=== PATIENT | female | born 1975 | race Two or more races ===

== ENCOUNTER 2023-05-11 19:03 | Emergency (ER) | payer OTHER ==
[~2023-05-11] VITALS: Ht 162.6 cm; Wt 72.7 kg
[2023-05-11 19:47] VITALS: BP 145/99; PULSE 119; RESP 19; TEMP 98.7
[2023-05-11 21:06] LABS: Rapid Influenza A Negative (Negative); Rapid Influenza B Negative (Negative)
[2023-05-11 21:08] LABS: COVID19 ANTIGEN SOFIA FIA NEGATIVE (NEGATIVE)
[2023-05-11] MEDS ORDERED: IBUP1TAB5 PO (22:12)
[2023-05-11] MEDS ORDERED: PRED20TA2 PO (22:12)
[2023-05-11] MEDS ORDERED: AUG875T PO (22:12)
[2023-05-11] MEDS ORDERED: BENZ200C64 PO (22:12)
[2023-05-11] MEDS ORDERED: FLUT1SPR5 (22:12)
[2023-05-11] MEDS ORDERED: CETI-120 PO (22:12)
[2023-05-11 22:37] VITALS: O2SAT 97
== END 2023-05-11 22:45 | disposition home or self-care (01) ==
LOC: ER 19:03
DX: J32.0 Chronic maxillary sinusitis (principal); R50.9 Fever, unspecified; R05.9 Cough, unspecified; Z20.822 Contact with and (suspected) exposure to COVID-19
CPT/HCPCS: 36415; 87426; 87804

== ENCOUNTER 2023-11-27 21:37 | Emergency (ER) | payer OTHER ==
[~2023-11-27] VITALS: Ht 162.6 cm; Wt 62.1 kg
[2023-11-27 21:37] VITALS: BP 123/97; PULSE 102; RESP 20; TEMP 99.9; O2SAT 98
[~2023-11-27 21:37] MED LIST: AUG875T PO; BENZ200C64 PO; CETI-120 PO; FLUT1SPR5; IBUP1TAB5 PO; PRED20TA2 PO
[2023-11-28] MEDS ORDERED: AUG875T PO (01:59)
[2023-11-28] MEDS: BENZOCAINE (DENTAL) 20 % SPRAY 60ML MT ONE (02:06)
== END 2023-11-28 02:20 | disposition home or self-care (01) ==
LOC: ER 21:37
DX: K04.7 Periapical abscess without sinus (principal); I10 Essential (primary) hypertension
CPT/HCPCS: 41800